=== PATIENT | female | born 1960 | race Caucasian/White ===

== ENCOUNTER 2025-02-07 12:53 | Day surgery (SDC) | payer OTHER ==
[~2025-02-07] VITALS: Ht 175.3 cm; Wt 125.0 kg
[~2025-02-07 12:53] MED LIST: ESTRADIOL1 MG PO; IBLOOD GLUCOSE TEST STRIP 1 EA TEST VI PRN; LACTATED RINGER'S 1,000 ML IV SCH; LIDOCAINE HCL 1% 5 ML SDV INJ ONE; LIDOCAINE HCL 4% 50 ML BTL TOP SCH; MAGNESIUM100 MG PO; MELOXICAM7.5 MG PO; MIDAZOLAM HCL 5 MG/5 ML VIAL IV PRN; OMEPRAZOLE20 MG PO; VITAMIN D21250 MCG PO; fentaNYL citrate 100 MCG/2 ML VIAL IV PRN
[2025-02-07 13:23] VITALS: BP 143/65
[2025-02-07] MEDS ORDERED: TART CHERRY400 MG PO (13:29)
[2025-02-07] MEDS ORDERED: fentaNYL citrate 100 MCG/2 ML VIAL ONE (15:50)
[2025-02-07] MEDS ORDERED: MIDAZOLAM HCL 5 MG/5 ML VIAL ONE (15:50)
--- NOTE | 2025-02-07 17:00 | NUR ---
02/07/25 1700 Claritza Huynh 1647 PT ARRIVED TO PACU ON 3L VIA NC, PT WAKES EASILY AND DENIES PAIN AND NAUSEA. 1650 MD AT BEDSIDE TALKING TO PT AND ALL QUESTIONS ANSWERED. PT EASILY FALLS BACK TO SLEEP. VSS.
[2025-02-07 17:32] VITALS: BP 150/67
--- NOTE | 2025-02-08 09:06 | OR ---
[facility] [address] [place], [place] [address] Signed DATE OF OPERATION: 02/07/2025 SURGEON: Christel Joy MD PREOPERATIVE DIAGNOSES: 1. Colon screening. 2. Gastroesophageal reflux with dysphagia. POSTOPERATIVE DIAGNOSES: 1. Upper endoscopy showing hiatal hernia with distal esophagitis without Pillai's epithelium; duodenal erosions and antral gastritis. 2. Normal colon to cecum except for diverticulosis of sigmoid. PROCEDURES: 1. Esophagogastroduodenoscopy with biopsy. 2. Total colonoscopy to cecum. ANESTHESIA: Intravenous sedation; fentanyl 150 mcg total and Versed 7 mg total. INDICATION: A 64-year-old white woman is a patient of Tanya Ragsdale MD of [place], [place]. She underwent colonoscopy and upper endoscopy in 2014. She is known to have hiatal hernia and gastroesophageal reflux. She has had "stomach issues", specifically heartburn and reflux and has been given omeprazole, which has been helpful. She does have occasional dysphagia, which is not disabling. Additionally, she underwent colonoscopy in 2014 which was without sign of polyp. She is admitted to undergo upper endoscopy and colonoscopy. She understands the risk of bleeding, infection, and perforation. FINDINGS: Upper endoscopy demonstrated duodenal erosions and antral gastritis. A hiatal hernia was noted as well as distal esophagitis without sign of stricture or Pillai's epithelium. Colonoscopy showed a good prep, diverticula of sigmoid and left colon. No polyps or other abnormality. DESCRIPTION OF PROCEDURE: The patient was brought to the endoscopy suite, given topical lidocaine hypopharyngeal anesthesia, placed in the lateral decubitus position left side down. A bite block was Electronically Signed By: CHRISTEL JOY MD 02/08/25 0906 PATIENT NAME: MICHELLE JUSTIN OPERATIVE REPORT DATE OF : 60 REPORT #: [id number] PHYSICIAN: CHRISTEL JOY MD PCP: RADHA ROJO PA-C REPORT IS CONFIDENTIAL AND NOT TO BE RELEASED WITHOUT AUTHORIZATION [facility] [address] [place], [place] [address] Signed placed. An Olympus video upper endoscope was passed into the hypopharynx. The vocal cords were normal. Scope was advanced to the esophagus without problem and into the stomach. Rugal folds were normal. Antral gastritis and erythema was noted. The pylorus was normal. The scope was passed through into the duodenum. The duodenum did demonstrate duodenal erosions. Biopsies were obtained for both that and to assess for celiac disease. Scope was withdrawn. Biopsies were taken of the antrum for both JENSEN and pathologic testing. Retroflexed view confirmed a moderate-sized hiatal hernia. Scope was withdrawn and biopsies were taken of the distal esophagus which showed inflammatory change, but without actual stricture and certainly no sign of Pillai's epithelium or varices. Biopsies were taken there and in the mid esophagus. The scope was withdrawn and removed and plans made for colonoscopy. Additional sedation was given and digital rectal examination was performed which was normal. The Olympus video colonoscope was passed in the rectum and manipulated throughout the colon ultimately intubating the cecum itself. The ileocecal valve and appendiceal orifice were normal. The scope was withdrawn. Examination throughout showed no sign of abnormality other than diverticulosis most dominantly in the left colon and sigmoid. Retroflexed view of the rectum was normal. Scope was removed and the patient was taken to the recovery room in good condition. CONCLUDING DIAGNOSES: 1. Hiatal hernia with esophagitis. No evidence of Pillai's epithelium. 2. Antral gastritis and duodenal erosions. 3. Diverticulosis of colon without polyps. PLAN: Recommend omeprazole 20 mg p.o. daily and Carafate 1 g p.o. q.i.d. We will see patient back in office in 4 to 6 weeks in followup from the upper endoscopy findings. We would recommend repeat colonoscopy in 10 years based on current guidelines. Christel Joy MD JM/MODL /[id number] Electronically Signed By: CHRISTEL JOY MD 02/08/25 0906 PATIENT NAME: MICHELLE JUSTIN OPERATIVE REPORT DATE OF : 60 REPORT #: [id number] PHYSICIAN: CHRISTEL JOY MD PCP: RADHA ROJO PA-C REPORT IS CONFIDENTIAL AND NOT TO BE RELEASED WITHOUT AUTHORIZATION [facility] [address] [place] [id number] Signed cc: Dr. Tanya Joiner, [place] Copies: ~ Electronically Signed By: CHRISTEL JOY MD 02/08/25 0906 PATIENT NAME: JULIUS JUSTINGUERO LANCASTER OPERATIVE REPORT DATE OF : 60 REPORT #: [id number] PHYSICIAN: CHRISTEL JOY MD PCP: RADHA ROJO PA-C REPORT IS CONFIDENTIAL AND NOT TO BE RELEASED WITHOUT AUTHORIZATION
--- NOTE | 2025-02-12 16:42 | PATH ---
[facility] [address] [place], [place] [address] Signed SPECIMEN(S): A DUODENAL BIOPSY SPECIMEN(S): B DUODENAL BULB BIOPSY SPECIMEN(S): C STOMACH, ANTRUM, ESOPHAGUS BIOPSY SPECIMEN(S): D DISTAL ESOPHAGEAL BIOPSY SPECIMEN(S): E MID ESOPHAGEAL BIOPSY SPECIMEN SOURCE: A. DUODENAL BIOPSY B. DUODENAL BULB BIOPSY C. STOMACH, ANTRUM, ESOPHAGUS BIOPSY D. DISTAL ESOPHAGEAL BIOPSY E. MID ESOPHAGEAL BIOPSY CLINICAL HISTORY: GERD and colon cancer screening, upper-duodenitis, duodenal ulcer, distal esophagitis, hiatal hernia, lower-diverticulosis FINAL PATHOLOGIC DIAGNOSIS: A. Duodenum, biopsy: - Benign duodenal mucosa, negative for significantly increased intraepithelial lymphocytosis and villous blunting. B. Duodenal bulb, biopsy: - Benign duodenal mucosa, negative for significantly increased intraepithelial lymphocytosis and villous blunting. C. Antrum, biopsy: - Benign antral type gastric mucosa with reactive gastropathy. - Negative for intestinal metaplasia and dysplasia. - Negative for Helicobacter pylori organisms on routine stain. D. Distal esophagus, biopsy: - Fragments of reactive squamocolumnar mucosa with reflux changes. - Negative for intestinal metaplasia and dysplasia. E. Midesophagus, biopsy: - Fragments of benign squamous epithelium. - Negative for acute inflammation and significantly increased eosinophils. DDF MICROSCOPIC EXAMINATION: Histologic sections of all submitted blocks are examined by light microscopy. These findings, together with the gross examination, support the pathologic diagnosis. PATIENT NAME: MICHELLE JUSTIN ANISHA PATHOLOGY DATE OF : 60 REPORT #: [id number] PHYSICIAN: SEBASTIAN ACEVES PCP: RADHA ROJO PA-C REPORT IS CONFIDENTIAL AND NOT TO BE RELEASED WITHOUT AUTHORIZATION [facility] [address] [place], [place] [address] Signed GROSS DESCRIPTION: A. The specimen, labeled and designated "Mohan, duodenum biopsy," is received in formalin and consists of two whitehead soft tissue fragments, ranging from 0.2-0.4 cm. Entirely submitted in (A1). B. The specimen, labeled and designated "Mohan, duodenal bulb biopsy," is received in formalin and consists of three whitehead soft tissue fragments, ranging from 0.2-0.3 cm. Entirely submitted in (B1). C. The specimen, labeled and designated "Mohan, stomach, antrum, esophageal biopsies," is received in formalin and consists of two whitehead soft tissue fragments, ranging from 0.2-0.3 cm. Entirely submitted in (C1). D. The specimen, labeled and designated "Mohan, distal esophageal biopsy," is received in formalin and consists of five whitehead soft tissue fragments, ranging from 0.3-0.5 cm. Entirely submitted in (D1). E. The specimen, labeled and designated "Mohan, mid esophageal biopsy," is received in formalin and consists of three whitehead soft tissue fragments, ranging from 0.3-0.4 cm. Entirely submitted in (E1). VB (under the direct supervision of a pathologist) The Gross Description was prepared using a voice recognition system. The report was reviewed for accuracy; however, sound-alike word errors, addition and/or deletions may occur. If there is any question about this report, please contact Client Services. ADDITIONAL NOTES: Immunohistochemical and/or in situ hybridization studies if performed in this case included appropriate positive controls that reacted as expected. This test was developed and its performance characteristics determined by [facility]. It has not been cleared or approved by the U.S. Food and Drug Administration. The FDA has determined that such clearance or approval is not necessary. This test is used for clinical purposes. It should not be regarded as investigational or for research. [facility] is certified under the Clinical Laboratory Improvement Amendments of 1988 (CLIA) as qualified to perform high complexity clinical laboratory testing. PERFORMING LABORATORY: Technical component was performed by [facility], [address] [place] [id number] (CLIA# [id number]). Professional interpretation was performed by [facility] PATIENT NAME: MICHELLE JUSTIN PATHOLOGY DATE OF : 60 REPORT #: [id number] PHYSICIAN: SEBASTIAN ACEVES PCP: RADHA ROJO PA-C REPORT IS CONFIDENTIAL AND NOT TO BE RELEASED WITHOUT AUTHORIZATION [facility] [address] [place] [address] [id number] [address] [id number] Diagnostician: Yayo Mooney DO Pathologist Electronically Signed 02/12/2025 Copies: ~ PATIENT NAME: MICHELLE JUSTIN PATHOLOGY DATE OF : 60 REPORT #: [id number] PHYSICIAN: SEBASTIAN PATHOLOGY PCP: RADHA ROJO PA-C REPORT IS CONFIDENTIAL AND NOT TO BE RELEASED WITHOUT AUTHORIZATION
== END 2025-02-07 17:42 ==
LOC: DS 12:53
PROVIDERS: ATTEND Surgery
PROC: 0DB68ZX Excision of Stomach, Via Natural or Artificial Opening Endoscopic, Diagnostic (ICD-10-PCS; 2025-02-07)
PROC: 0DB58ZX Excision of Esophagus, Via Natural or Artificial Opening Endoscopic, Diagnostic (ICD-10-PCS; 2025-02-07)
PROC: 0DJD8ZZ Inspection of Lower Intestinal Tract, Via Natural or Artificial Opening Endoscopic (ICD-10-PCS; principal; 2025-02-07 14:00)
PROC: 0DB98ZX Excision of Duodenum, Via Natural or Artificial Opening Endoscopic, Diagnostic (ICD-10-PCS; 2025-02-07 14:00)
DX: K21.00 Gastro-esophageal reflux disease with esophagitis, without bleeding (principal); K26.9 Duodenal ulcer, unspecified as acute or chronic, without hemorrhage or perforation; K29.70 Gastritis, unspecified, without bleeding; K44.9 Diaphragmatic hernia without obstruction or gangrene; K31.89 Other diseases of stomach and duodenum; Z12.11 Encounter for screening for malignant neoplasm of colon; K57.30 Diverticulosis of large intestine without perforation or abscess without bleeding; G47.30 Sleep apnea, unspecified; E66.01 Morbid (severe) obesity due to excess calories; Z68.41 Body mass index [BMI] 40.0-44.9, adult; Z79.899 Other long term (current) drug therapy; Z88.0 Allergy status to penicillin; Z88.2 Allergy status to sulfonamides
CPT/HCPCS: 99153; G0500; J2250; J3010; J7121